=== PATIENT | male | born 1975 | race Caucasian/White ===

== ENCOUNTER 2016-08-14 18:32 | Emergency (ER) | payer OTHER ==
[2016-08-14 18:36] VITALS: BP 143/87; PULSE 83; TEMP 98; BMI 32.3
--- NOTE | 2016-08-14 19:17 | PDOC ---
History of Present Illness - General Chief Complaint: Cold Symptoms Stated Complaint: COLD SYMPTOMS Time Seen by Provider: 08/14/16 18:47 History Source: Patient Exam Limitations: No Limitations - History of Present Illness Initial Comments: 08/14/16 19:58 Chief complaint: Intermittent sore throat, cough, fever, chills for one week History of present illness: Patient is a 41-year-old male with no significant medical history here today complaining of intermittent sore throat with dry cough 5 days and productive cough with yellowish phlegm 2 days with intermittent fever and chills for one week. Patient reports chest discomfort only when coughing and no shortness of breath. Patient denies any nasal congestion, nausea vomiting or diarrhea. Patient had nosebleed yesterday right nostril none today. She has had no recent travel and has not had any sick contacts. He did not have influenza vaccine. Timing/Duration: intermittent (for one week ) Severity: mild Associated Symptoms: reports: cough (with yellowish production ), fever/chills, other (sore throa t') Past History - Past Medical History Allergies/Adverse Reactions: Allergies Allergy/AdvReac Type Severity Reaction Status Date / Time No Known Allergies Allergy Verified 08/14/16 18:36 Home Medications: Ambulatory Orders Azithromycin [Zithromax 250mg Tablets -] 250 mg PO UTDICT #6 tab 08/14/16 Guaifenesin Dm [Mucinex Dm -] 2 each PO Q12H PRN #20 tab.er.[id number] 08/14/16 Other medical history: NONE - Psycho/Social/Smoking Cessation Hx Anxiety: No Suicidal Ideation: No Smoking History: Never smoked Hx Alcohol Use: No Drug/Substance Use Hx: No Substance Use Type: None Review of Systems - Review of Systems Able to Perform ROS?: Yes Constitutional: Yes: Chills, Fever HEENTM: Yes: Nose Bleeding (yesterday rt. nostril ), Throat Pain Respiratory: Yes: Productive cough (yellowish last few days was dry prior for 5 days ). No: Shortness of Breath, SOB with Exertion, SOB at Rest, Wheezing, Hemoptysis Cardiac (ROS): Yes: Chest Pain (when coughing only ). No: Edema, Irregular Heart Rate, Lightheadedness, Palpitations, Syncope, Chest Tightness ABD/GI: No: Symptoms Reported : No: Symptoms Reported Musculoskeletal: No: Symptoms Reported Integumentary: No: Symptoms Reported Neurological: No: Symptoms reported *Physical Exam - Vital Signs Last Vital Signs Temp Pulse Resp BP Pulse Ox 98.0 F 83 20 143/87 98 08/14/16 18:33 08/14/16 18:33 08/14/16 18:33 08/14/16 18:33 08/14/16 18:33 - Physical Exam General Appearance: Yes: Appropriately Dressed HEENT: positive: TMs Normal, Pharyngeal Erythema, Tonsillar Erythema (with no uvular deviation ). negative: Tonsillar Exudate, Nasal Congestion, Rhinorrhea, Sinus Tenderness Neck: negative: Lymphadenopathy (R), Lymphadenopathy (L) Respiratory/Chest: positive: Lungs Clear, Normal Breath Sounds. negative: Chest Tender, Respiratory Distress Cardiovascular: positive: Regular Rhythm, Regular Rate, S1, S2 Integumentary: positive: Normal Color Medical Decision Making - Medical Decision Making 08/14/16 19:59 Patient is a 41-year-old male with no significant medical history here today complaining of intermittent sore throat with dry cough 5 days and productive cough with yellowish phlegm 2 days with intermittent fever and chills for one week. Patient reports chest discomfort only when coughing and no shortness of breath. Patient denies any nasal congestion, nausea vomiting or diarrhea. Patient had nosebleed yesterday right nostril none today. She has had no recent travel and has not had any sick contacts. He did not have influenza vaccine. r/o influenza A or B r/o throat C & S productive cough pharyngitis costochondritis PLAN: throat C & S rapid negative influenza A & B rapid negative duoneb now decadron 10 mg po now 08/14/16 20:33 ibuprofen 600 mg po now mucinex DM 2 caps q12 hrs prn cough for 5 days azithromycin 250 mg 2 tabs today than on etab daily for following 4 days *DC/Admit/Observation/Transfer Diagnosis at time of Disposition: Costochondritis, Bronchitis Pharyngitis Qualifiers: Pharyngitis/tonsillitis etiology: unspecified etiology Qualified Code(s): J02.9 - Acute pharyngitis, unspecified - Discharge Dispostion Disposition: HOME Condition at time of disposition: Stable - Patient Instructions Additional Instructions: Drink A lot a fluids and rest Follow-up with your primary care provider this week Return to emergency room if symptoms worsen or any new symptoms develop Patient voiced understanding of discharge instructions and all questions were answered
[2016-08-14] MEDS ORDERED: DEXAMETHASONE LIQUID 0.5 MG/5 ML 240 ML BULK BOTTLE PO ONE (19:51)
[2016-08-14] MEDS ORDERED: ALBUTEROL SO4 2.5/IPRATROPIUM 0.5 INH SOL 3 ML VIAL.NEB. NEB ONE ×2 (19:52→19:57)
[2016-08-14] MEDS ORDERED: DEXAMETHASONE 4 MG TABLET (FP) ONE (19:57)
[2016-08-14] MEDS ORDERED: IBUPROFEN 100 MG/5 ML UNIT DOSE CUPS ONE (20:30)
[2016-08-14] MEDS ORDERED: IBUPROFEN 600 MG TABLET (FP) PO ONE (20:32)
== END 2016-08-14 20:47 | disposition home or self-care (01) ==
LOC: JERFT 18:32
PROC: 3E0F7GC Introduction of Other Therapeutic Substance into Respiratory Tract, Via Natural or Artificial Opening (ICD-10-PCS; principal; 2016-08-14)
DX: J20.9 Acute bronchitis, unspecified (principal); J02.9 Acute pharyngitis, unspecified; M94.0 Chondrocostal junction syndrome [Tietze]
CPT/HCPCS: 87070; 87430; 87804; 94640; 99281-25

== ENCOUNTER 2016-10-05 16:27 | Emergency (ER) | payer OTHER ==
[2016-10-05 16:36] VITALS: BP 123/75; PULSE 84; TEMP 98.4; BMI 21.2
--- NOTE | 2016-10-05 17:28 | PDOC ---
History of Present Illness - General Chief Complaint: Hemorrhoids Stated Complaint: ABSCESS BOIL Time Seen by Provider: 10/05/16 17:12 History Source: Patient Exam Limitations: No Limitations - History of Present Illness Initial Comments: CHIEF COMPLAINT: 41 y/o afebrile male with no significant PMH c/o painful bump on his butt for the past few days. HISTORY OF PRESENT ILLNESS: The patient states he noticed a bump in his anal region a few days ago that is now painful and he thinks it's an abscess. He states it hurts when he has a bowel movement. The patient states he does not strain to have a BM and his BMs are normally soft. He denies fever, bleeding from affected area and all other symptoms. Vital signs on arrival are within normal limits. REVIEW OF SYSTEMS: GENERAL/CONSTITUTIONAL: No fever/chills. No weakness. No weight change. HEAD, EYES, EARS, NOSE AND THROAT: No change in vision. No ear pain or discharge. No sore throat. MUSCULOSKELETAL: No joint or muscle swelling or pain. No neck or back pain. SKIN: +painful bump to anal region NEUROLOGIC: No headache, vertigo, loss of consciousness, or loss of sensation. PHYSICAL EXAM: GENERAL: The patient is awake, alert, and fully oriented, in no acute distress. HEAD: Normal with no signs of trauma. NEUROLOGICAL: Normal speech, normal gait. CN II-XII grossly intact. SKIN: 1.5cm external hemorrhoid on left anal area that is very TTP. The hemorrhoid looks like it is starting to thrombose in the center without strangulation. Past History - Past Medical History Allergies/Adverse Reactions: Allergies Allergy/AdvReac Type Severity Reaction Status Date / Time No Known Allergies Allergy Verified 10/05/16 16:32 Home Medications: Ambulatory Orders NK [No Known Home Medication] 10/05/16 Other medical history: DENIES. - Psycho/Social/Smoking Cessation Hx Anxiety: No Suicidal Ideation: No Smoking History: Never smoked Hx Alcohol Use: No Drug/Substance Use Hx: No Substance Use Type: None *Physical Exam - Vital Signs Last Vital Signs Temp Pulse Resp BP Pulse Ox 98.4 F 84 18 123/75 99 10/05/16 16:32 10/05/16 16:32 10/05/16 16:32 10/05/16 16:32 10/05/16 16:32 Medical Decision Making - Medical Decision Making A/P: 41 y/o male with a partially thrombosed external hemorrhoid. Plan is to discharge to home with supportive care instructions and referral to Dr. Sales. The patient was instructed to return to the ER with any worsening or concerning symptoms. The patient verbalizes understanding of all instructions, has no further questions and is awaiting discharge. *DC/Admit/Observation/Transfer Diagnosis at time of Disposition: Hemorrhoid Qualifiers: Hemorrhoid type: unspecified Qualified Code(s): K64.9 - Unspecified hemorrhoids - Discharge Dispostion Disposition: HOME Condition at time of disposition: Good - Referrals Referrals: Conrad Sales MD [Staff Physician] - - Patient Instructions Printed Discharge Instructions: DI for Hemorrhoids Additional Instructions: Discharge Instructions: -Soak your hemorrhoid in sitz baths or warm soaks -Use OTC hemorrhoid cream to help with pain -Drink at least 64oz of water per day -Increase the amount of fiber in your diet -Call Dr. Sales to schedule follow up appointment as soon as possible -Return to the ER with any worsening or concerning symptoms - Post Discharge Activity Work/School Note: Back to Work
== END 2016-10-05 17:59 | disposition home or self-care (01) ==
LOC: JERFT 16:27
DX: K64.5 Perianal venous thrombosis (principal)
CPT/HCPCS: 99281-25

== ENCOUNTER 2022-12-26 11:18 | Emergency (ER) | payer OTHER ==
[2022-12-26 11:32] VITALS: BP 159/98; PULSE 72; RESP 20; BMI 31.0
[2022-12-26 11:33] VITALS: TEMP 97.8
[2022-12-26] MEDS ORDERED: DIPHTH,PERTUSS(ACELL),TET 0.5 ML DISP.SYRIN IM ONE ×2 (12:35→12:37)
[2022-12-26] MEDS ORDERED: IBUPROFEN 600 MG TABLET (FP) PO ONE ×2 (12:37→12:38)
[2022-12-26] MEDS ORDERED: IBUPROFEN 400 MG TABLET (FP) PO ONE (12:39)
== END 2022-12-26 15:15 | disposition home or self-care (01) ==
LOC: JERFT 11:18
PROC: 2W3CX1Z Immobilization of Right Lower Arm using Splint (ICD-10-PCS; principal; 2022-12-26)
PROC: 3E0234Z Introduction of Serum, Toxoid and Vaccine into Muscle, Percutaneous Approach (ICD-10-PCS; 2022-12-26)
DX: M79.602 Pain in left arm (principal); M25.562 Pain in left knee; S52.125A Nondisplaced fracture of head of left radius, initial encounter for closed fracture; S80.212A Abrasion, left knee, initial encounter; V13.4XXA Pedal cycle driver injured in collision with car, pick-up truck or van in traffic accident, initial encounter; Y93.55 Activity, bike riding
CPT/HCPCS: 29125; 73060-TC-LT-FY; 73070-TC-LT-FY; 73090-TC-LT-FY; 73110-TC-LT-FY; 73130-TC-LT-FY; 73200-TC-RT; 73562-TC-LT-FY; 90471; 90715; 99284-25